=== PATIENT | male | born 1985 | race Caucasian/White ===

== ENCOUNTER 2024-05-13 18:01 | Emergency (ER) | payer OTHER, SELFPAY ==
[2024-05-13 18:02] VITALS: BP 149/114; PULSE 85; RESP 16; TEMP 36.4; O2SAT 98; BMI 24.0
--- NOTE | 2024-05-13 18:33 | EDS_ITS ---
HPI HPI - GI History of Present Illness Chief Complaint: Flank Pain Detail of Chief Complaint: 4-day history left flank pain. Atraumatic. Informant: patient and family Abdominal Pain/Flank Pain Onset: Days Context: Gradual Onset Quality: Aching Location: Left Flank Current Severity: Mild Maximum Severity: Moderate Worsened by: Movement Relieved by: Nothing Nausea/Vomiting/Emesis GI Symptom: Negative for Nausea or Vomiting Diarrhea/Melena/Hematochezia GI Symptom: Negative for Diarrhea, Melena or Hematochezia Associated Symptoms Associated Symptoms: Negative for Dysuria, Frequency, Hematuria or Urgency Narrative Narrative: 39-year-old male with onset of left flank pain about 4 to 5 days ago. Got worse after he sneezed a couple days ago. He has never had a kidney stone there is family history. He denies any fever or dysuria. He is worse with movement. Denies any fall injury or trauma. He has never had pain like this before. Prior similar symptoms: No Recent Illness/Hospitalization: No PFSH PFSH Medical History Kidney stones no medical history Home Medications ?Medication ?Instructions ?Recorded ?Last Taken ?Type hydrocodone-acetaminophen 5-325mg 1 - 2 tab PO Q4H PRN PRN Pain ##20 01/08/14 Unknown Rx 5mg-325mg naproxen 500 mg tablet 500 mg PO BID #20 tabs 01/08/14 Unknown Rx Allergy/AdvReac Type Severity Reaction Status Date / Time No Known Allergies Allergy Verified 05/13/24 18:02 Family History Other Kidney stone Surgical History no surgical history Social History Smoking Status: Current every day smoker tobacco type: e-cigarettes ROS ROS ED ROS Narrative Left flank pain. No recent illness. Constitutional Constitutional ED: Denies chills or fever(s) ENT ENT ED: Denies ear pain Cardiovascular Cardiovascular: Denies chest pain Respiratory/Chest Respiratory/Chest: Denies cough or dyspnea Gastrointestinal Gastrointestinal: Denies abdominal pain Genitourinary Genitourinary ED: Denies dysuria or hematuria Musculoskeletal Musculoskeletal: Reports back pain; Denies arthralgias Integumentary Denies abscess or Abrasions Neurologic Neurologic: Denies headache(s) Psychiatric Psychiatric: Denies anxiety Endocrine Endocrinology: Denies polydipsia Hematologic/Lymphatic Hematologic/Lymphatic: Denies easy bleeding Allergic/Immunologic Allergic/Immunologic ED: Denies mouth swelling, tongue swelling or urticaria EXAM Physical Exam Narrative Exam Narrative: 39-year-old male no acute distress vital signs stable afebrile. HEENT exam unremarkable. Lungs clear. Heart regular rhythm. No murmur. Abdomen soft nontender. No peritoneal signs. Back nontender. No ecchymosis or bruising. No rashes. No CVA tenderness. Moving all 4 extremities. He is awake and alert. No focal motor deficits. Const Vital Signs: 05/13/24 18:02 05/13/24 20:01 Temperature 97.6 F L Temperature Source Temporal Pulse Rate 85 69 Respiratory Rate 16 16 Blood Pressure 149/114 H 139/69 H Blood Pressure Mean 125 92 Pulse Ox 98 99 Oxygen Delivery Method Room Air Room Air Positive well nourished and well developed; Negative for obese, cachectic, contractures or unkempt General Appearance ED: well developed and NAD; Negative for unkempt, cachectic, contractures or pallor Nutritional Appearance: Negative for cachectic or obese HEENT Reports moist mucous membranes normocephalic and atraumatic; Negative for trauma or tenderness Eyes PERRL and EOMs intact bilaterally General Eye ED: Negative for pale conjunctiva, scleral icterus or other Neck no lymphadenopathy, supple and no JVD General: Negative for tenderness Carotids: Negative for other Lymph Lymphatic: Negative for other Resp normal respiratory effort and clear to auscultation bilaterally Effort and Inspection: Negative for respiratory distress Auscultation: Negative for rales, rhonchi, wheezes or diminished lung sounds Cardio regular rate, regular rhythm, S1 normal heart sound, S2 normal heart sound and no murmurs Rate: Negative for bradycardia or tachycardic Rhythm: Negative for abnormal rhythm GI non-tender, non-distended and no masses Inspection: Negative for abdominal distention Auscultation: normoactive bowel sounds Palpation: soft; Negative for tender, guarding or rebound tenderness present Back/Spine no CVA tenderness General Back: Negative for CVA tenderness Cervical Spine: Negative for cervical spine tenderness Thoracic Spine / Upper Back: Negative for thoracic spinal tenderness Lumbar Spine / Lower Back: Negative for lumbar spinal tenderness Extremity full ROM General Extremety ED: Negative for edema or tenderness General Extremity: Negative for edema Neuro CN's II-XII intact bilaterally and moves all extremities Sensorium / Orientation: alert; Negative for oriented to person, oriented to place, oriented to time or orientation impaired Motor Exam: strength 5/5 throughout; Negative for general weakness or strength abnormal Psych mental status grossly normal and thought process normal Appearance: Negative for unkempt Attitude: No agitated Mood & Affect: Negative for depressed, anxious or tearful Skin no wounds General Skin Exam: Negative for jaundice or pallor Lesions: no lesions Rashes: no rashes Trauma: Negative for abrasion Nails: Negative for discolored MDM MDM MDM Narrative Medical decision making narrative: 39-year-old male left flank pain. Family history of kidney stones he is never abdomen. The pain is not reproducible. CAT scan labs pending. He currently did not want or need anything for pain. Differential would include kidney stone versus UTI versus musculoskeletal pain versus other etiologies. Repeat exam patient is doing well at 8:30 PM. I went over all the test results and CAT scan with both he and his family. Basilar is all unremarkable. I suspect this is musculoskeletal pain. Repeat exam he has very minimal tenderness to his left lower lateral rib. There is no ecchymosis or bruising. No rash. His abdomen is completely nontender. I suspect this is musculoskeletal pain. Motrin and Tylenol. Discharged home. Outpatient follow- up as needed. History & Record Review Discussion w/independent historian: Patient and Family Lab Data Attestation: I reviewed the patient's lab results. Lab results narrative: CBC unremarkable. White count of 6. H&H 15 and 45. Platelets 305. Electrolytes show gap 11. Normal BUN and creatinine. Glucose 103. UA normal. No white or red cells. No nitrites. No bacteria. Labs: Laboratory Results - last 24 hr 05/13/24 05/13/24 18:13 18:18 WBC 6.4 RBC 4.71 Hgb 15.5 Hct 45.1 MCV 95.8 H MCH 32.9 H MCHC 34.4 RDW Std Deviation 44.4 H RDW Coeff of Shania 12.3 Plt Count 305 MPV 9.1 Immature Gran % (Auto) 0.200 Neut % (Auto) 48.5 Lymph % (Auto) 30.3 [place] % (Auto) 17.2 H Eos % (Auto) 1.9 Baso % (Auto) 1.9 H Absolute Neuts (auto) 3.1 Absolute Lymphs (auto) 1.95 Nucleated RBC % 0 Sodium 139 Potassium 3.7 Chloride 102 Carbon Dioxide 26.0 Anion Gap 11 BUN 7 Creatinine 0.80 Estim Creat Clear Calc 129.27 Est GFR (MDRD) Af Amer 138 Est GFR (MDRD) Non-Af 114 BUN/Creatinine Ratio 8.7 L Glucose 103 Calcium 9.7 Urine Color Yellow Urine Clarity Clear Urine pH 6.0 Ur Specific [place] 1.020 Urine Protein 30 H Urine Glucose (UA) Normal Urine Ketones Negative Urine Occult Blood Negative Urine Nitrite Negative Urine Bilirubin Negative Urine Urobilinogen 1 H Ur Leukocyte Esterase Negative Urine RBC 0 SEEN Urine WBC 0 SEEN Ur Squamous Epith Cells 0 SEEN Urine Bacteria 0 SEEN Urine Mucus 0 SEEN Radiography Diagnostic Testing: Clinical Impression(s) from Imaging Studies Abdomen/Pelvis CT 05/13/24 19:06 IMPRESSION: 1. No masses bowel obstruction abscess free fluid or free air. 2. No renal calcifications or evidence of obstructive uropathy. 3. No evidence of cholelithiasis or ductal dilatation. Electronically Signed: Han Branham MD at 19:40 EDT , Discharge Plan Triage Chief Complaint: Flank Pain ED Provider: Travis Torres Dx/Rx/DC Orders Clinical Impression: Acute left flank pain Instructions: ED Flank Pain, Uncertain Cause Prescriptions: No Action hydrocodone-acetaminophen 1 TABLET tablet 1 - 2 tab PO Q4H PRN PRN (Reason: Pain) Qty: 20 0RF naproxen 500 MG tablet 500 mg PO BID Qty: 20 0RF Primary Care Provider: Care Physician,No Primary Referrals: Diogenes Olvera MD [Med Staff - Biogeographer] - 1 Week if not improving Care Physician,No Primary [Primary Care Provider] - Activity Restrictions/Additional Instructions: CAT scan, labs and urinalysis all unremarkable. No obvious kidney stone. Suspected musculoskeletal pain. Motrin and Tylenol for pain. Follow-up with not improving. Print Language: Tamazight Disposition Disposition: Home, Self Care
[2024-05-13 18:46] LABS: Bacteria 0 SEEN /hpf (None Seen); Mucous, Urine 0 SEEN /hpf (<or=2+); Red Blood Cells-Urine 0 SEEN /hpf (0-5); Squamous Epithelial Cells - UA 0 SEEN /hpf (0-5); White Blood Cells 0 SEEN /hpf (0-5)
[2024-05-13 18:59] LABS: Absolute Lymphocyte Count 1.95 X10^3/uL (0.83-4.51); Absolute Neutrophil Count 3.1 X10^3/uL (2.0-7.7); Basophil# 0.12 X10^3/uL; Basophil% 1.9 % (0-1); Eosinophil# 0.12 X10^3/uL; Eosinophils% 1.9 % (0-5); Hematocrit 45.1 % (40-54); Hemoglobin 15.5 g/dL (13.0-16.5); Lymphocyte # 1.95 X10^3/ul (0.83-4.51); Lymphocyte % 30.3 % (19-41); Mean Corp Hgb Conc 34.4 g/dL (32-36); Mean Corpuscular Hgb 32.9 pg (27.0-32.0); Mean Corpuscular Volume 95.8 fL (80-94); Mean Platelet Vol. 9.1 fl (6.2-12.0); Monocyte# 1.11 X10^3/uL; Monocyte% 17.2 % (0-10); NRBC Flagged by Analyzer 0 % (0-5); Neutrophil # 3.13 X10^3/uL (2.7-7.7); Neutrophil % 48.5 % (47-70); Platelet Count 305 K/mm3 (150-450); RBC Distribution Width CV 12.3 % (11.6-14.6); RBC Distribution Width SD 44.4 fl (35.1-43.9); Red Blood Count 4.71 M/mm3 (4.6-6.2); White Blood Count 6.4 K/mm3 (4.4-11.0)
--- NOTE | 2024-05-13 19:06 | CT_ITS ---
INDICATION: Pain EXAMINATION: CT ABDOMEN AND PELVIS WITHOUT CONTRAST - CT Abdomen And Pelvis W/O Contrast Injection TECHNIQUE: Helically acquired images were obtained of the abdomen and pelvis without oral or IV contrast. A radiation dose optimization technique was used for this scan. IV Contrast dosage and agent: None. Oral contrast: None. RADIATION DOSAGE (If Supplied By Facility): CTDIvol = ( 6.77 ) mGy, DLP = ( 367.25 ) mGycm COMPARISON: No pertinent previous examinations for comparison. FINDINGS: LOWER CHEST: 1. Lung bases are clear. 2. No cardiomegaly or pericardial effusion. 3. No significant coronary vascular calcifications. LIVER: The liver has normal configuration and density given the limitation of noncontrast exam.. No focal mass. GALLBLADDER AND BILIARY TREE: No calcified gallstones. No gallbladder distension or wall edema. No intra- or extrahepatic biliary ductal dilation. PANCREAS: No focal cystic or solid mass. SPLEEN: Normal size without focal cystic or solid mass. ADRENAL GLANDS: No nodules. KIDNEYS AND URETERS: Normal renal size and position. No hydronephrosis. PERITONEUM: No ascites or free air. No other fluid collection. BOWEL: No evidence of acute appendicitis. No stomach or bowel distension. No focal inflammatory change. Incidental note of colonic interposition with the liver. LYMPH NODES: No enlarged mesenteric or retroperitoneal lymph nodes. VESSELS: Aorta is non-dilated. URINARY BLADDER: Unremarkable. REPRODUCTIVE ORGANS: No pelvic masses. ABDOMINAL WALL: No discrete abdominal or pelvic wall hernia. BONES: No evidence of fracture destructive bony process. No canal stenosis. Mild degenerative changes at the L4-5 and L5-S1 level. CT/Abdomen/Pelvis without Cont IMPRESSION: 1. No masses bowel obstruction abscess free fluid or free air. 2. No renal calcifications or evidence of obstructive uropathy. 3. No evidence of cholelithiasis or ductal dilatation. Electronically Signed: Han Branham MD at 19:40 EDT ,
[2024-05-13 19:08] LABS: Color, Urine Yellow (Yellow); Glucose, Dipstick Normal (Normal); Ketone-Dipstick Negative (Negative); Leukocyte Esterase-Dipstick Negative /ul (Negative); Nitrite-Dipstick Negative (Negative); Occult Blood-Urine Negative /ul (Negative); Protein-Dipstick 30 mg/dl (Negative); Urine Bilirubin Dipstick Negative (Negative); Urine Clarity Clear (Clear); Urine Urobilinogen 1 mg/dl (Normal)
[2024-05-13 19:15] LABS: Anion Gap 11 (5-15); BUN 7 mg/dL (7-18); BUN/Creat Ratio 8.7 RATIO (10-20); Calcium,Total 9.7 mg/dL (8.5-10.1); Chloride 102 mmol/L (98-107); EST Glomerular Filtration Rate 114 mL/min (>60); Est Glom Filt Rate - Afr Amer 138 mL/min (>60); Estimated Creatinine Clearance 129.27 ml/min; Glucose 103 mg/dL (74-106); Potassium 3.7 mmol/L (3.5-5.1); Sodium Level 139 mmol/L (136-145)
[2024-05-13 20:01] VITALS: BP 139/69; PULSE 69; RESP 16; O2SAT 99
[2024-05-13 20:55] VITALS: BP 124/65; PULSE 68; RESP 16; TEMP 36.6; O2SAT 99
== END 2024-05-13 20:56 | disposition home or self-care (01) ==
PROVIDERS: Emergency Provider Emergency Medicine; Visit Provider Emergency Medicine
DX: R10.32 Left lower quadrant pain (principal); X58.XXXA Exposure to other specified factors, initial encounter; F17.290 Nicotine dependence, other tobacco product, uncomplicated
CPT/HCPCS: 74176; 80048; 81001; 85025; 99283; A4216

== ENCOUNTER 2024-08-28 11:59 | Inpatient (IN) | payer OTHER, SELFPAY ==
[2024-08-28] VITALS (8 sets, daily range): BP systolic 137–169; BP diastolic 102–126; PULSE 68–82; RESP 16–19; TEMP 36.6–37.3; O2SAT 96–100; BMI 24.4; BMI 21.4
--- NOTE | 2024-08-28 12:47 | EX.ED.SAOD ---
HPI History of Present Illness Chief Complaint: Substance Abuse Informant: patient, spouse/S.O. and family Narrative Narrative: 39-year-old male presenting to the emergency room requesting detox from alcohol. Patient drinks approximately a half of 1/5 of bourbon daily. He states that he typically has to have a drink to keep withdrawal symptoms at bay. He notes anxiety shaking tachycardia and nausea. Last drink was at approximately 0900 hrs. today 30 minutes after waking. He denies any pending legal issues. He states that he has been considering getting help but decided over the weekend that it was time. He states that he got laid off in the past week. PFS PFS Medical History Alcohol abuse Smoker Home Medications ?Medication ?Instructions ?Recorded ?Last Taken ?Type NK 08/28/24 Unknown History Allergy/AdvReac Type Severity Reaction Status Date / Time No Known Allergies Allergy Verified 08/28/24 12:01 Family History Other Kidney stone Social History Smoking Status: Current every day smoker tobacco type: e-cigarettes ROS ROS ED Constitutional Constitutional ED: Denies chills or weight loss Eyes Eyes: Denies change in vision or diplopia ENT ENT ED: Denies ear pain, rhinorrhea or sore throat Cardiovascular Cardiovascular: Denies chest pain, orthopnea, palpitations or racing heartbeat Respiratory/Chest Respiratory/Chest: Denies cough, dyspnea or orthopnea Gastrointestinal Gastrointestinal: Reports nausea; Denies abdominal pain, diarrhea or vomiting Genitourinary Genitourinary ED: Denies dysuria, hematuria or urinary frequency Musculoskeletal Musculoskeletal: Denies arthralgias or myalgias Integumentary Denies abscess or rash Neurologic Neurologic: Reports other Details: Tremor ; Denies headache(s) or weakness Psychiatric Psychiatric: Reports anxiety and depression; Denies suicidal ideation or suicidal thoughts Endocrine Endocrinology: Denies polydipsia, polyphagia or polyuria Allergic/Immunologic Allergic/Immunologic ED: Denies mouth swelling, tongue swelling or urticaria EXAM Physical Exam Const Vital Signs: 08/28/24 12:00 Temperature 98.4 F Temperature Source Oral Pulse Rate 78 Respiratory Rate 16 Blood Pressure 169/126 H Blood Pressure Mean 140 Pulse Ox 96 Oxygen Delivery Method Room Air Positive well nourished and well developed General Appearance ED: well developed HEENT Reports normocephalic, head/scalp atraumatic and moist mucous membranes Eyes PERRL and EOMs intact bilaterally Neck no lymphadenopathy, supple and no JVD Resp normal respiratory effort and clear to auscultation bilaterally Cardio regular rate, regular rhythm and no murmurs GI normal to inspection, nondistended, normoactive bowel sounds and non-tender Palpation: soft Back/Spine no CVA tenderness and normal ROM Extremity normal to inspection General Extremety ED: Negative for edema General Extremity: Negative for edema Neuro oriented x3 and CN's II-XII intact bilaterally Sensorium / Orientation: alert Motor Exam: strength 5/5 throughout Psych mental status grossly normal Mood & Affect: Negative for depressed or tearful Skin no rashes or lesions noted and no wounds MDM MDM MDM Narrative Medical decision making narrative: Differential diagnosis includes but not limited to alcohol abuse alcohol intoxication alcohol withdrawal electrolyte abnormality liver dysfunction anemia/bone marrow suppression dehydration White count 4.3 with a plate count of 84 suggestive of bone marrow suppression from alcohol. Hemoglobin 14.8. INR 1 transaminases are slightly elevated 245 and 299 total bilirubin is 1.1 with a direct bilirubin 0.45 alcohol level 293. Urine toxicology is negative. A magnesium was added this returned at 1.9. Plan is admission to the hospital for ramp program History & Record Review Discussion w/independent historian: Patient and Family Lab Data Attestation: I reviewed the patient's lab results. Labs: Laboratory Results - last 24 hr 08/28/24 08/28/24 12:59 13:00 WBC 4.3 L RBC 4.58 L Hgb 14.8 Hct 42.7 MCV 93.2 MCH 32.3 H MCHC 34.7 RDW Std Deviation 45.1 H RDW Coeff of Shania 13.1 Plt Count 84 L MPV 8.4 Immature Gran % (Auto) 0.200 Neut % (Auto) 70.5 H Lymph % (Auto) 10.9 L [place] % (Auto) 16.5 H Eos % (Auto) 0.5 Baso % (Auto) 1.4 H Absolute Neuts (auto) 3.0 Absolute Lymphs (auto) 0.47 L Nucleated RBC % 0 Differential Comment COMMENT Platelet Estimate MOD DEC PT 13.3 INR 1.0 Sodium 138 Potassium 3.2 L Chloride 98 Carbon Dioxide 26.0 Anion Gap 15 BUN 6 L Creatinine 0.64 L Estim Creat Clear Calc 161.59 Est GFR (MDRD) Af Amer 181 Est GFR (MDRD) Non-Af 149 BUN/Creatinine Ratio 9.4 L Glucose 98 Calcium 9.8 Magnesium 1.9 Total Bilirubin 1.10 H Direct Bilirubin 0.45 H AST 245 H ALT 299 H Alkaline Phosphatase 96 Total Protein 8.0 Albumin 4.2 Globulin 3.8 Urine Opiates Screen NEGATIVE Urine Methadone Screen NEGATIVE Ur Barbiturates Screen NEGATIVE Ur Phencyclidine Scrn NEGATIVE Ur Amphetamines Screen NEGATIVE MDMA (Ecstasy) Screen NEGATIVE U Benzodiazepines Scrn NEGATIVE Urine Cocaine Screen NEGATIVE U Cannabinoids Screen NEGATIVE Ur Drug Screen Comment Ethyl Alcohol 293.0 Management Discussion w/another healthcare provider: Hospitalist (Dr Crandall) Discharge Plan Dx/Rx/DC Orders Clinical Impression: Alcohol abuse, Elevated transaminase level, Thrombocytopenia, Acute hypokalemia, Alcohol intoxication Disposition Disposition: Acute Care Hospital [facility] Discharge Date/Time: 08/28/24 14:18
[2024-08-28 13:13] LABS: Absolute Lymphocyte Count 0.47 X10^3/uL (0.83-4.51); Basophil# 0.06 X10^3/uL; Basophil% 1.4 % (0-1); Eosinophil# 0.02 X10^3/uL; Eosinophils% 0.5 % (0-5); Hematocrit 42.7 % (40-54); Hemoglobin 14.8 g/dL (13.0-16.5); Lymphocyte # 0.47 X10^3/ul (0.83-4.51); Lymphocyte % 10.9 % (19-41); Mean Corp Hgb Conc 34.7 g/dL (32-36); Mean Corpuscular Hgb 32.3 pg (27.0-32.0); Mean Corpuscular Volume 93.2 fL (80-94); Mean Platelet Vol. 8.4 fl (6.2-12.0); Monocyte# 0.71 X10^3/uL; Monocyte% 16.5 % (0-10); NRBC Flagged by Analyzer 0 % (0-5); Neutrophil # 3.03 X10^3/uL (2.7-7.7); Neutrophil % 70.5 % (47-70); POSITIVE COUNT YES; POSITIVE DIFFERENTIAL YES; Platelet Count 84 K/mm3 (150-450); RBC Distribution Width CV 13.1 % (11.6-14.6); RBC Distribution Width SD 45.1 fl (35.1-43.9); Red Blood Count 4.58 M/mm3 (4.6-6.2); White Blood Count 4.3 K/mm3 (4.4-11.0)
[2024-08-28 13:18] LABS: Differential Indicated SCAN CRITERIA MET
[2024-08-28 13:22] LABS: Amphetamine Urine VISTA NEGATIVE (<1000 ng/mL); Barbiturate Urine VISTA NEGATIVE (< 200 ng/mL); Benzodiazepine Urine VISTA NEGATIVE (< 200 ng/mL); Cocaine Urine VISTA NEGATIVE (< 300 ng/mL); Ecstacy Urine VISTA NEGATIVE (< 500 ng/mL); Methadone Urine VISTA NEGATIVE (< 300 ng/mL); PCP Urine VISTA NEGATIVE (< 25 ng/mL); THC Urine VISTA NEGATIVE (< 50 ng/mL); Vista UDS pH Range 5
[2024-08-28 13:28] LABS: AST(SGOT) 245 U/L (15-37); Alanine Aminotransfer ALT/SGPT 299 U/L (16-61); Albumin, Serum 4.2 g/dL (3.2-5.0); Alkaline Phosphatase 96 U/L (45-117); Anion Gap 15 (5-15); BUN 6 mg/dL (7-18); BUN/Creat Ratio 9.4 RATIO (10-20); Bilirubin, Direct 0.45 mg/dL (0.00-0.30); Calcium,Total 9.8 mg/dL (8.5-10.1); Chloride 98 mmol/L (98-107); Creatinine, Serum 0.64 mg/dL (0.70-1.30); EST Glomerular Filtration Rate 149 mL/min (>60); Est Glom Filt Rate - Afr Amer 181 mL/min (>60); Estimated Creatinine Clearance 161.59 ml/min; Globulin 3.8 g/dL (2.2-4.2); Glucose 98 mg/dL (74-106); Potassium 3.2 mmol/L (3.5-5.1); Sodium Level 138 mmol/L (136-145)
[2024-08-28 13:34] LABS: Prothrombin Time (Protime)PT. 13.3 SECONDS (11.7-14.9)
--- NOTE | 2024-08-28 13:40 | HP.PCM.HOS_ITS ---
HPI - General General Date of Admission: 08/28/24 Date of Service: 08/28/24 Chief Complaint: ETOH detox HPI Narrative CHLOE AMANDA, is a 39 M with history of tobacco use who presented to [facility] ED 10/29/2023 for alcohol detox. He drinks about half of 1/5 of bourbon every 1 to 2 days per patient but typically has to drink to keep withdrawal symptoms at bay and when he does not drink he gets anxiety, shaking, tachycardia, nausea. Last drink at 9 AM about 30 minutes after waking up. He got laid off last week so has been drinking more this week and felt that it was time to get help. In the ED patient with potassium of 3.2, elevated transaminases and thrombocytopenia but was stable for admission and alcohol detox. Hospitalist contacted for admission patient evaluated at bedside with family present (patient gave permission to speak in front of family.) he reports history as above and that he has been drinking for many years, presently not having any withdrawal symptoms but when he does not drink he notes the shaking and anxiety and nausea as above. Patient denies any other substance or drug use aside from vaping which she does daily. Denies any abdominal pain, eats roughly 2 meals a day and does make sure to drink water and keep himself hydrated. [facility]LY [facility], [facility] Medical History Kidney stones Home Medications ?Medication ?Instructions ?Recorded ?Last Taken ?Type hydrocodone-acetaminophen 5-325mg 1 - 2 tab PO Q4H PRN PRN Pain ##20 01/08/14 Unknown Rx 5mg-325mg naproxen 500 mg tablet 500 mg PO BID #20 tabs 01/08/14 Unknown Rx Allergy/AdvReac Type Severity Reaction Status Date / Time No Known Allergies Allergy Verified 08/28/24 12:01 Family History Other Kidney stone Social History Smoking Status: Current every day smoker tobacco type: e-cigarettes ROS ROS Narrative General: Denies fever/chills HENT: Denies headache, denies stuffy nose, denies sore throat EYES: Denies changes in vision Resp: Denies cough, denies shortness of breath Cardiac: Denies chest pain GI: Denies abdominal pain, denies changes in bowel, denies nausea/vomiting : Denies changes in urination Extremity: Denies swelling MSK: Denies weakness Neuro: Denies any numbness/tingling Heme: Denies any bleeding or bruising Skin: Denies rashes Psychiatric: No complaints voiced Vital Signs Vital Signs Vital Signs: 08/28/24 12:00 Temperature 98.4 F Temperature Source Oral Pulse Rate 78 Respiratory Rate 16 Blood Pressure 169/126 H Blood Pressure Mean 140 Pulse Ox 96 Oxygen Delivery Method Room Air Weight Weight: 77.337 kg Body Mass Index (BMI) 24.4 Physical Exam Narrative General: Alert, oriented, no apparent distress HEENT: Atraumatic, normocephalic Eyes: Anicteric, normal conjunctiva, extraocular movements grossly intact Neck: Supple Respiratory: Clear to auscultation bilaterally, normal respiratory effort Cardiovascular: Regular rate and rhythm GI: Soft, nontender, nondistended Extremities: No edema Musculoskeletal: Moving all extremities Neuro: No overt focal neurological deficits Skin: No rashes appreciated Psych: Cooperative Results Lab / Micro Data 08/28/24 12:59 08/28/24 12:59 Labs: Laboratory Results - last 24 hr 08/28/24 12:59: WBC 4.3 L, RBC 4.58 L, Hgb 14.8, Hct 42.7, MCV 93.2, MCH 32.3 H, MCHC 34.7, RDW Std Deviation 45.1 H, RDW Coeff of Shania 13.1, Plt Count 84 L, MPV 8.4, Immature Gran % (Auto) 0.200, Neut % (Auto) 70.5 H, Lymph % (Auto) 10.9 L, [place] % (Auto) 16.5 H, Eos % (Auto) 0.5, Baso % (Auto) 1.4 H, Absolute Neuts (auto) 3.0, Absolute Lymphs (auto) 0.47 L, Nucleated RBC % 0, Sodium 138, P otassium 3.2 L, Chloride 98, Carbon Dioxide 26.0, Anion Gap 15, BUN 6 L, C reatinine 0.64 L, Estim Creat Clear Calc 161.59, Est GFR (MDRD) Af Amer 181, Est GFR (MDRD) Non-Af 149, BUN/Creatinine Ratio 9.4 L, Glucose 98, Calcium 9.8, T otal Bilirubin 1.10 H, Direct Bilirubin 0.45 H, AST 245 H, ALT 299 H, Alkaline Phosphatase 96, Total Protein 8.0, Albumin 4.2, Globulin 3.8, Urine Opiates Screen NEGATIVE, Urine Methadone Screen NEGATIVE, Ur Barbiturates Screen NEGATIVE, Ur Phencyclidine Scrn NEGATIVE, Ur Amphetamines Screen NEGATIVE, MDMA (Ecstasy) Screen NEGATIVE, U Benzodiazepines Scrn NEGATIVE, Urine Cocaine Screen NEGATIVE, U Cannabinoids Screen NEGATIVE, Ur Drug Screen Comment , Ethyl Alcohol 293.0 08/28/24 13:00: PT 13.3, INR 1.0 Assessment & Plan Assessment/Plan (1) Alcohol withdrawal: PLAN: Plan #Alcohol use disorder - We will begin CIWA every 4 for 24 hours, then every 6 for 24 hours, then every 12 until discharge -Will begin phenobarbital taper -Gabapentin 300 mg every 8 as needed -Will start Bentyl and hydroxyzine as needed as well as loperamide as needed -Trazodone 100 mg p.o. nightly as needed sleep -Begin thiamine and folic acid supplementation -Zofran as needed for nausea -Case management consult to assist with discharge planning -EtOH 293 -UDS negative # Elevated transaminases -Suspect secondary to patient's heavy alcohol use -Repeat CMP in the a.m., can consider further workup or imaging pending worsening or improvement -Presently is asymptomatic -Ultimately will benefit from outpatient follow-up #Tobacco use -Advise cessation -Nicotine patch ordered #Hypokalemia -Replace -Repeat in the AM # Leukopenia/thrombocytopenia -Suspect secondary to patient's chronic alcohol use, will need to follow-up on outpatient basis #DVT ppx: Low risk, ambulatory Joann Crandall MD Charges/Coding Visit Charges Inpatient E&M: 13956 Init Hosp L2
[2024-08-28 13:44] LABS: Platelet Estimate MOD DEC (ADEQ)
[2024-08-28 13:56] LABS: Magnesium 1.9 mg/dL (1.6-2.6)
[2024-08-28] MEDS: Potassium Chloride Oral Tablet 20 MEQ 40 MEQ PO (14:06)
[2024-08-28] MEDS: Phenobarbital 32.4 MG Tablet 64.8 MG PO ×3 (15:12→22:49)
[2024-08-28] MEDS: hydrALAZINE 20 MG/ML Vial 10 MG IV (23:59)
[2024-08-28] MEDS: 0.9% Saline Lock 10 ML Syringe IV (23:59)
[2024-08-29] VITALS (7 sets, daily range): BP systolic 146–176; BP diastolic 101–112; PULSE 80–92; RESP 15–18; TEMP 36.8–36.9; O2SAT 98–100
[2024-08-29] MEDS: Phenobarbital 32.4 MG Tablet 64.8 MG PO ×6 (02:49→22:08)
[2024-08-29] MEDS: 0.9% Saline Lock 10 ML Syringe IV (03:21)
[2024-08-29] MEDS: hydrOXYzine PAM 25 MG Capsule 50 MG PO ×2 (03:21→18:36)
[2024-08-29] MEDS: hydrALAZINE 20 MG/ML Vial IV (03:21)
[2024-08-29 07:04] LABS: Absolute Neutrophil Count 3.9 X10^3/uL (2.0-7.7); Basophil# 0.08 X10^3/uL; Basophil% 1.5 % (0-1); Eosinophil# 0.03 X10^3/uL; Eosinophils% 0.6 % (0-5); Hematocrit 45.7 % (40-54); Hemoglobin 15.9 g/dL (13.0-16.5); Lymphocyte % 7.4 % (19-41); Mean Corp Hgb Conc 34.8 g/dL (32-36); Mean Corpuscular Hgb 32.8 pg (27.0-32.0); Mean Corpuscular Volume 94.2 fL (80-94); Mean Platelet Vol. 9.4 fl (6.2-12.0); Monocyte# 0.99 X10^3/uL; Monocyte% 18.2 % (0-10); NRBC Flagged by Analyzer 0 % (0-5); Neutrophil # 3.93 X10^3/uL (2.7-7.7); Neutrophil % 72.1 % (47-70); POSITIVE COUNT YES; POSITIVE DIFFERENTIAL YES; Platelet Count 86 K/mm3 (150-450); RBC Distribution Width CV 13.2 % (11.6-14.6); RBC Distribution Width SD 45.3 fl (35.1-43.9); Red Blood Count 4.85 M/mm3 (4.6-6.2); White Blood Count 5.4 K/mm3 (4.4-11.0)
[2024-08-29 08:00] LABS: ALB/GLOB Ratio 1.1 RATIO (0.9-2.4); AST(SGOT) 204 U/L (15-37); Alanine Aminotransfer ALT/SGPT 279 U/L (16-61); Alkaline Phosphatase 99 U/L (45-117); Anion Gap 13 (5-15); BUN 8 mg/dL (7-18); Calcium,Total 9.8 mg/dL (8.5-10.1); Chloride 95 mmol/L (98-107); Creatinine, Serum 0.54 mg/dL (0.70-1.30); EST Glomerular Filtration Rate 183 mL/min (>60); Est Glom Filt Rate - Afr Amer 221 mL/min (>60); Estimated Creatinine Clearance 177.78 ml/min; Globulin 3.7 g/dL (2.2-4.2); Glucose 77 mg/dL (74-106); Potassium 3.5 mmol/L (3.5-5.1); Protein, Total 7.7 g/dL (6.4-8.2); Sodium Level 134 mmol/L (136-145)
[2024-08-29] MEDS: Thiamine Hydrochloride 100 MG Tablet PO (08:31)
[2024-08-29] MEDS: Folic Acid 1 MG Tablet PO (08:31)
--- NOTE | 2024-08-29 09:52 | PCM.PN.HOSP ---
Reason for Visit Reason for Visit: Diagnoses Alcohol use, unspecified with withdrawal, unspecified (08/28/24) Objective Data Objective Data Vital Signs: Vital Signs Temp Pulse Resp BP Pulse Ox O2 Del Method 98.2 F 82 18 146/101 H 98 Room Air 08/29/24 08:24 08/29/24 08:24 08/29/24 08:24 08/29/24 08:24 08/29/24 08:24 08/29/24 08:24 Oxygen Delivery Method Room Air Weight: 149 lb 6.4 oz Body Mass Index (BMI) 21.4 Intake & Output: Intake and Output for Last 24 Hours 08/27/24 08/28/24 08/29/24 23:59 23:59 23:59 Intake Total 700 / 700 300 / 300 Balance 700 / 700 300 / 300 Lab / Micro Data 08/29/24 06:20 08/29/24 06:20 Labs: Laboratory Results - last 24 hr 08/28/24 12:59: WBC 4.3 L, RBC 4.58 L, Hgb 14.8, Hct 42.7, MCV 93.2, MCH 32.3 H, MCHC 34.7, RDW Std Deviation 45.1 H, RDW Coeff of Shania 13.1, Plt Count 84 L, MPV 8.4, Immature Gran % (Auto) 0.200, Neut % (Auto) 70.5 H, Lymph % (Auto) 10.9 L, [place] % (Auto) 16.5 H, Eos % (Auto) 0.5, Baso % (Auto) 1.4 H, Absolute Neuts (auto) 3.0, Absolute Lymphs (auto) 0.47 L, Nucleated RBC % 0, Differential Comment COMMENT, Platelet Estimate MOD DEC, Sodium 138, Potassium 3.2 L, Chloride 98, Carbon Dioxide 26.0, Anion Gap 15, BUN 6 L, Creatinine 0.64 L, Estim Creat Clear Calc 161.59, Est GFR (MDRD) Af Amer 181, Est GFR (MDRD) Non-Af 149, BUN/Creatinine Ratio 9.4 L, Glucose 98, Calcium 9.8, Magnesium 1.9, Total Bilirubin 1.10 H, Direct Bilirubin 0.45 H, AST 245 H, ALT 299 H, Alkaline Phosphatase 96, Total Protein 8.0, Albumin 4.2, Globulin 3.8, Urine Opiates Screen NEGATIVE, Urine Methadone Screen NEGATIVE, Ur Barbiturates Screen NEGATIVE, Ur Phencyclidine Scrn NEGATIVE, Ur Amphetamines Screen NEGATIVE, MDMA (Ecstasy) Screen NEGATIVE, U Benzodiazepines Scrn NEGATIVE, Urine Cocaine Screen NEGATIVE, U Cannabinoids Screen NEGATIVE, Ur Drug Screen Comment , Ethyl Alcohol 293.0 08/28/24 13:00: PT 13.3, INR 1.0 08/29/24 06:20: WBC 5.4, RBC 4.85, Hgb 15.9, Hct 45.7, MCV 94.2 H, MCH 32.8 H, MCHC 34.8, RDW Std Deviation 45.3 H, RDW Coeff of Shania 13.2, Plt Count 86 L, MPV 9.4, Immature Gran % (Auto) 0.200, Neut % (Auto) 72.1 H, Lymph % (Auto) 7.4 L, Phillips % (Auto) 18.2 H, Eos % (Auto) 0.6, Baso % (Auto) 1.5 H, Absolute Neuts (auto) 3.9, Absolute Lymphs (auto) 0.40 L, Nucleated RBC % 0, Sodium 134 L, Potassium 3.5, Chloride 95 L, Carbon Dioxide 26.0, Anion Gap 13, BUN 8, Creatinine 0.54 L, Estim Creat Clear Calc 177.78, Est GFR (MDRD) Af Amer 221, Est GFR (MDRD) Non-Af 183, BUN/Creatinine Ratio 15.0, Glucose 77, Calcium 9.8, Total Bilirubin 1.50 H, AST 204 H, ALT 279 H, Alkaline Phosphatase 99, Total Protein 7.7, Albumin 4.0, Globulin 3.7, Albumin/Globulin Ratio 1.1 Physical Exam Narrative Seen and examined. Patient is states he was drinking half a bottle of whiskey every day for last 2 and half years. Patient has tremors and anxiety. Denies abdominal pain. Denies symptoms of chronic alcoholic liver disease including hematemesis, melena, ascites or jaundice Physical exam General: Alert, Oriented x3, Cooperative HEENT: Atraumatic, PERRLA, EOMI, Normocephalic Oral: No Gingival or Mucosal Lesions/ Ulcerations Neck: Supple, No JVD, Negative Carotid Bruits Chest wall/Lungs: Air entry diminished in bilateral lung bases. No crepitation/rhonchi Cardiovascular: Regular rate, Regular Rhythm, Normal S1, Normal S2, No M/G/R Abdomen: Bowel Sounds Present, Soft, Non Tender, Non-Distended : No dysuria. No renal angle tenderness. No suprapubic tenderness. Extremities: No edema, Capillary Refill Less than 3 Seconds Skin: No rashes, No breakdown Musculoskeletal: No Tenderness to Palpation of Joints or Extremities. Mild tremors Neurological: Cranial nerves II-XII grossly intact, DTR 2+/4. No acute focal neurological deficit. Psych/Mental Status: Anxiety Assessment & Plan Assessment/Plan (1) Alcohol withdrawal: PLAN: Plan 39-year-old male admitted with acute alcohol withdrawal syndrome. 1. Acute alcohol withdrawal syndrome with history of chronic alcohol use, dependence and tolerance: Patient is being admitted to MedSurg floor. Patient on phenobarbital based order set along with other adjunctive medications gabapentin, Bentyl, Vistaril, clonidine, Klonopin as needed for alcohol withdrawal symptom control. Patient is on thiamine and folate acid. CIWA monitor. computer programming manager 180 consulted. Serum alcohol level was 293. U tox was negative 2. Acute on chronic alcoholic hepatitis: ALT AST elevated, gradually getting better. Total bilirubin went up from 1.1-1.5. Patient denies history of hematemesis, melena, jaundice or abdominal pain and no tenderness on exam 3. Tobacco use -Advise cessation -Nicotine patch ordered # 4. Hypokalemia Potassium was replaced and repeat 3.5. On a scheduled potassium replacement. Serum magnesium normal 1.9. Monitor the labs. Serum phosphorus ordered # Leukopenia/thrombocytopenia -Suspect secondary to patient's chronic alcohol use, 08/29: Repeat labs shows improvement in WBC 5.4 thousand. Platelet count is still very low 86,000. #DVT ppx: Low risk, ambulatory Laboratory Results 08/28/24 12:59: WBC 4.3 L, RBC 4.58 L, Hgb 14.8, Hct 42.7, MCV 93.2, MCH 32.3 H, MCHC 34.7, RDW Std Deviation 45.1 H, RDW Coeff of Shania 13.1, Plt Count 84 L, MPV 8.4, Immature Gran % (Auto) 0.200, Neut % (Auto) 70.5 H, Lymph % (Auto) 10.9 L, Phillips % (Auto) 16.5 H, Eos % (Auto) 0.5, Baso % (Auto) 1.4 H, Absolute Neuts (auto) 3.0, Absolute Lymphs (auto) 0.47 L, Nucleated RBC % 0, Differential Comment COMMENT, Platelet Estimate MOD DEC, Sodium 138, Potassium 3.2 L, Chloride 98, Carbon Dioxide 26.0, Anion Gap 15, BUN 6 L, Creatinine 0.64 L, Estim Creat Clear Calc 161.59, Est GFR (MDRD) Af Amer 181, Est GFR (MDRD) Non-Af 149, BUN/Creatinine Ratio 9.4 L, Glucose 98, Calcium 9.8, Magnesium 1.9, Total Bilirubin 1.10 H, Direct Bilirubin 0.45 H, AST 245 H, ALT 299 H, Alkaline Phosphatase 96, Total Protein 8.0, Albumin 4.2, Globulin 3.8, Urine Opiates Screen NEGATIVE, Urine Methadone Screen NEGATIVE, Ur Barbiturates Screen NEGATIVE, Ur Phencyclidine Scrn NEGATIVE, Ur Amphetamines Screen NEGATIVE, MDMA (Ecstasy) Screen NEGATIVE, U Benzodiazepines Scrn NEGATIVE, Urine Cocaine Screen NEGATIVE, U Cannabinoids Screen NEGATIVE, Ethyl Alcohol 293.0 08/28/24 13:00: PT 13.3, INR 1.0 08/29/24 06:20: WBC 5.4, RBC 4.85, Hgb 15.9, Hct 45.7, MCV 94.2 H, MCH 32.8 H, MCHC 34.8, RDW Std Deviation 45.3 H, RDW Coeff of Shania 13.2, Plt Count 86 L, MPV 9.4, Immature Gran % (Auto) 0.200, Neut % (Auto) 72.1 H, Lymph % (Auto) 7.4 L, Phillips % (Auto) 18.2 H, Eos % (Auto) 0.6, Baso % (Auto) 1.5 H, Absolute Neuts (auto) 3.9, Absolute Lymphs (auto) 0.40 L, Nucleated RBC % 0, Sodium 134 L, Potassium 3.5, Chloride 95 L, Carbon Dioxide 26.0, Anion Gap 13, BUN 8, Creatinine 0.54 L, Estim Creat Clear Calc 177.78, Est GFR (MDRD) Af Amer 221, Est GFR (MDRD) Non-Af 183, BUN/Creatinine Ratio 15.0, Glucose 77, Calcium 9.8, Total Bilirubin 1.50 H, AST 204 H, ALT 279 H, Alkaline Phosphatase 99, Total Protein 7.7, Albumin 4.0, Globulin 3.7, Albumin/Globulin Ratio 1.1 Charges/Coding Visit Charges Inpatient E&M: 60378 Subs Hosp L2
--- NOTE | 2024-08-29 11:36 | ADDICTION ---
Met with Pt to complete RAMP assessments and discuss treatment options. Pt reports that he has a supportive , has a therapist at [facility] and plans to talk to his friends about going to . Clinician discussed a higher level of care treatment options but he was not interested.
[2024-08-29] MEDS: Potassium Chloride Oral Tablet 20 MEQ 40 MEQ PO (13:33)
[2024-08-29 14:13] LABS: Anion Gap 8 (5-15); BUN 10 mg/dL (7-18); BUN/Creat Ratio 14.3 RATIO (10-20); Calcium,Total 10.4 mg/dL (8.5-10.1); Chloride 95 mmol/L (98-107); EST Glomerular Filtration Rate 134 mL/min (>60); Est Glom Filt Rate - Afr Amer 162 mL/min (>60); Estimated Creatinine Clearance 137.15 ml/min; Glucose 92 mg/dL (74-106); Phosphorus 2.8 mg/dL (2.5-4.9); Potassium 3.6 mmol/L (3.5-5.1); Sodium Level 132 mmol/L (136-145)
[2024-08-30 00:33] VITALS: BP 141/102; PULSE 82; RESP 16; TEMP 36.7; O2SAT 99
[2024-08-30] MEDS: Phenobarbital 32.4 MG Tablet 64.8 MG PO ×3 (02:56→11:03)
[2024-08-30 03:00] VITALS: BP 143/105; PULSE 75; RESP 16; TEMP 36.6; O2SAT 99
[2024-08-30 08:26] VITALS: BP 153/127; PULSE 95; RESP 12; TEMP 36.5; O2SAT 100
[2024-08-30] MEDS: Potassium Chloride Oral Tablet 20 MEQ 40 MEQ PO (08:30)
[2024-08-30] MEDS: Folic Acid 1 MG Tablet PO (08:30)
[2024-08-30] MEDS: Thiamine Hydrochloride 100 MG Tablet PO (08:30)
[2024-08-30 08:38] LABS: ALB/GLOB Ratio 1.1 RATIO (0.9-2.4); AST(SGOT) 173 U/L (15-37); Alanine Aminotransfer ALT/SGPT 249 U/L (16-61); Alkaline Phosphatase 89 U/L (45-117); Anion Gap 11 (5-15); BUN 10 mg/dL (7-18); BUN/Creat Ratio 17.4 RATIO (10-20); Calcium,Total 10.1 mg/dL (8.5-10.1); Chloride 96 mmol/L (98-107); Creatinine, Serum 0.57 mg/dL (0.70-1.30); EST Glomerular Filtration Rate 168 mL/min (>60); Est Glom Filt Rate - Afr Amer 204 mL/min (>60); Estimated Creatinine Clearance 168.51 ml/min; Globulin 3.8 g/dL (2.2-4.2); Glucose 89 mg/dL (74-106); Magnesium 1.9 mg/dL (1.6-2.6); Potassium 3.7 mmol/L (3.5-5.1); Protein, Total 7.8 g/dL (6.4-8.2); Sodium Level 133 mmol/L (136-145)
--- NOTE | 2024-08-30 12:20 | NURSING ---
Patient left Dr. Ej SIGALA aware. SL removed.
--- NOTE | 2024-08-30 13:03 | DS.PCM_ITS ---
Providers Date of Admission: 08/28/24 Date of Discharge: 08/30/24 Primary Care Physician: No Primary Care Phys Reason For Visit: ETOH DETOX Diagnosis Discharge Diagnosis (1) Alcohol withdrawal: Status: Acute Code(s): F10.939 - Alcohol use, unspecified with withdrawal, unspecified Plan 39-year-old male admitted with acute alcohol withdrawal syndrome. 1. Acute alcohol withdrawal syndrome with history of chronic alcohol use, dependence and tolerance: Patient is being admitted to MedSur floor. Patient on phenobarbital based order set along with other adjunctive medications gabapentin, Bentyl, Vistaril, clonidine, Klonopin as needed for alcohol withdrawal symptom control. Patient is on thiamine and folate acid. CIWA monitor. manager quality improvement 180 consulted. Serum alcohol level was 293. U tox was negative 08/30: Patient stated he wants to sign AMA. He knows the risk and complications of signing AMA including worsening of alcohol withdrawal symptoms. I talked to him to stay but he is declining. Patient signed AMA 2. Acute on chronic alcoholic hepatitis: ALT AST elevated, gradually getting better. Total bilirubin went up from 1.1-1.5. Patient denies history of hematemesis, melena, jaundice or abdominal pain and no tenderness on exam 08/30: Advised to follow-up with GI/liver clinic 3. Tobacco use -Advise cessation -Nicotine patch ordered # 4. Hypokalemia Potassium was replaced and repeat 3.5. On a scheduled potassium replacement. Serum magnesium normal 1.9. Monitor the labs. Serum phosphorus ordered # Leukopenia/thrombocytopenia -Suspect secondary to patient's chronic alcohol use, 08/29: Repeat labs shows improvement in WBC 5.4 thousand. Platelet count is still very low 86,000. #DVT ppx: Low risk, ambulatory Laboratory Results 08/28/24 12:59: WBC 4.3 L, RBC 4.58 L, Hgb 14.8, Hct 42.7, MCV 93.2, MCH 32.3 H, MCHC 34.7, RDW Std Deviation 45.1 H, RDW Coeff of Shania 13.1, Plt Count 84 L, MPV 8.4, Immature Gran % (Auto) 0.200, Neut % (Auto) 70.5 H, Lymph % (Auto) 10.9 L, [place] % (Auto) 16.5 H, Eos % (Auto) 0.5, Baso % (Auto) 1.4 H, Absolute Neuts (auto) 3.0, Absolute Lymphs (auto) 0.47 L, Nucleated RBC % 0, Differential Comment COMMENT, Platelet Estimate MOD DEC, Sodium 138, Potassium 3.2 L, Chloride 98, Carbon Dioxide 26.0, Anion Gap 15, BUN 6 L, Creatinine 0.64 L, Estim Creat Clear Calc 161.59, Est GFR (MDRD) Af Amer 181, Est GFR (MDRD) Non-Af 149, BUN/Creatinine Ratio 9.4 L, Glucose 98, Calcium 9.8, Magnesium 1.9, Total Bilirubin 1.10 H, Direct Bilirubin 0.45 H, AST 245 H, ALT 299 H, Alkaline Phosphatase 96, Total Protein 8.0, Albumin 4.2, Globulin 3.8, Urine Opiates Screen NEGATIVE, Urine Methadone Screen NEGATIVE, Ur Barbiturates Screen NEGATIVE, Ur Phencyclidine Scrn NEGATIVE, Ur Amphetamines Screen NEGATIVE, MDMA (Ecstasy) Screen NEGATIVE, U Benzodiazepines Scrn NEGATIVE, Urine Cocaine Screen NEGATIVE, U Cannabinoids Screen NEGATIVE, Ethyl Alcohol 293.0 08/28/24 13:00: PT 13.3, INR 1.0 08/29/24 06:20: WBC 5.4, RBC 4.85, Hgb 15.9, Hct 45.7, MCV 94.2 H, MCH 32.8 H, MCHC 34.8, RDW Std Deviation 45.3 H, RDW Coeff of Shania 13.2, Plt Count 86 L, MPV 9.4, Immature Gran % (Auto) 0.200, Neut % (Auto) 72.1 H, Lymph % (Auto) 7.4 L, M thanh % (Auto) 18.2 H, Eos % (Auto) 0.6, Baso % (Auto) 1.5 H, Absolute Neuts (auto) 3.9, Absolute Lymphs (auto) 0.40 L, Nucleated RBC % 0, Sodium 134 L, Potassium 3.5, Chloride 95 L, Carbon Dioxide 26.0, Anion Gap 13, BUN 8, C reatinine 0.54 L, Estim Creat Clear Calc 177.78, Est GFR (MDRD) Af Amer 221, Est GFR (MDRD) Non-Af 183, BUN/Creatinine Ratio 15.0, Glucose 77, Calcium 9.8, Total Bilirubin 1.50 H, AST 204 H, ALT 279 H, Alkaline Phosphatase 99, Total Protein 7.7, Albumin 4.0, Globulin 3.7, Albumin/Globulin Ratio 1.1 Medications at Discharge Home Medications NK 08/28/24 Physical Exam Narrative Seen and examined. Patient sitting wants to sign AMA. Patient still has mild unsteady gait and tremors. Patient is states he was drinking half a bottle of whiskey every day for last 2 and half years. Denies abdominal pain. Denies symptoms of chronic alcoholic liver disease including hematemesis, melena, ascites or jaundice Physical exam General: Alert, Oriented x3, Cooperative HEENT: Atraumatic, PERRLA, EOMI, Normocephalic Oral: No Gingival or Mucosal Lesions/ Ulcerations Neck: Supple, No JVD, Negative Carotid Bruits Chest wall/Lungs: Air entry diminished in bilateral lung bases. No crepitation/rhonchi Cardiovascular: Regular rate, Regular Rhythm, Normal S1, Normal S2, No M/G/R Abdomen: Bowel Sounds Present, Soft, Non Tender, Non-Distended : No dysuria. No renal angle tenderness. No suprapubic tenderness. Extremities: No edema, Capillary Refill Less than 3 Seconds Skin: No rashes, No breakdown Musculoskeletal: No Tenderness to Palpation of Joints or Extremities. Mild tremors Neurological: Cranial nerves II-XII grossly intact, DTR 2+/4. No acute focal neurological deficit. Psych/Mental Status: Anxiety Weight / BMI Weight Weight: 149 lb 7.574 oz Body Mass Index (BMI) 21.4 ABG / Lab / Microbiology Data 08/29/24 06:20 08/30/24 05:09 Laboratory: Laboratory Results - last 24 hr 08/29/24 13:32: Sodium 132 L, Potassium 3.6, Chloride 95 L, Carbon Dioxide 29.0, Anion Gap 8, BUN 10, Creatinine 0.70, Estim Creat Clear Calc 137.15, Est GFR (MDRD) Af Amer 162, Est GFR (MDRD) Non-Af 134, BUN/Creatinine Ratio 14.3, Glucose 92, Calcium 10.4 H, Phosphorus 2.8 08/30/24 05:09: Sodium 133 L, Potassium 3.7, Chloride 96 L, Carbon Dioxide 25.0, Anion Gap 11, BUN 10, Creatinine 0.57 L, Estim Creat Clear Calc 168.51, Est GFR (MDRD) Af Amer 204, Est GFR (MDRD) Non-Af 168, BUN/Creatinine Ratio 17.4, Glucose 89, Calcium 10.1, Magnesium 1.9, Total Bilirubin 1.80 H, AST 173 H, ALT 249 H, Alkaline Phosphatase 89, Total Protein 7.8, Albumin 4.0, Globulin 3.8, Albumin/Globulin Ratio 1.1 D/C Instructions DC O2, CPAP, BIPAP Needs Additional Home O2 Discharge instructions: No DC home with Oxygen: No Meaningful Use Info Meaningful Use Meaningful Use Diagnoses (Choose all that apply): None applicable Ischemic Stroke Statin Dosing Therapy Reference: STATIN DOSE THERAPY REFERENCE: * Patients > 75 years receive moderate or high dose statin therapy. * Patients 75 years or YOUNGER should receive HIGH intensity statin dose unless contraindicated. You will be required to document reason for non-treatment if statin daily dose does not meet guidelines. HIGH DOSE STATIN THERAPY DAILY Atorvastatin > than or = to 40 mg Rosuvastatin > than or = to 20 mg Amlodipine + Atorvastatin > than or = to 2.5/40 mg Ezetimibe + Simvastatin 10/80 mg Simvastatin 80mg Discharge Plan Admission Admit Date/Time: 08/28/24 13:40 Attending Provider: Jorge Luis Pagan Primary Care Provider: Care Physician,No Primary Consulting Providers: Joann Crandall Discharge Orders/Prescriptions Prescriptions: No Action NK Referrals / Follow Up: Care Physician,No Primary [Primary Care Provider] - Disposition Disposition (needs filled in before D/C Order can be placed): Home, Self Care Charges/Coding Visit Charges Inpatient E&M: 55215 Disch Hosp >30min
== END 2024-08-30 12:35 | disposition home or self-care (01) | DRG 897 ==
LOC: ED 12:52 → MS3 13:48
PROVIDERS: Admitting Provider Internal Medicine; Emergency Provider Emergency Medicine; Visit Provider Internal Medicine
DX: F10.239 Alcohol dependence with withdrawal, unspecified (principal); D69.6 Thrombocytopenia, unspecified; K70.10 Alcoholic hepatitis without ascites; E87.6 Hypokalemia; D72.819 Decreased white blood cell count, unspecified; F17.210 Nicotine dependence, cigarettes, uncomplicated; R74.01 Elevation of levels of liver transaminase levels; Y90.7 Blood alcohol level of 200-239 mg/100 ml
CPT/HCPCS: 36415; 80048; 80053; 80076; 80307; 82077; 83735; 84100; 85025; 85610; 97802; 99284; 99406; A4216

== ENCOUNTER 2024-08-31 11:38 | Emergency (ER) | payer OTHER, SELFPAY ==
[2024-08-31 11:38] VITALS: BP 153/97; PULSE 82; RESP 16; TEMP 36.1; O2SAT 96; BMI 23.3
--- NOTE | 2024-08-31 11:59 | EDS_ITS ---
<Statement entered by Freddy Barroso DO - 08/31/24 16:18> Patient was seen and examined with physician medical receptionist assistant Vannesa All components of the history and physical confirmed and agreed. History of present illness and physical exam: Patient is a 39-year-old male who presents to the emergency department wanting readmitted for alcohol detox. He states that he was initially mated on Wednesday and left AGAINST MEDICAL ADVICE on Wednesday. He states that he has been drinking about 1/5 of bourbon daily for about 2 years. He states that he has gone through withdrawal in the past but has not had any seizures. He states that he has not had a drink since Wednesday. He states that he left because he got anxious and now he regrets his decision therefore he came back for readmission. Patient otherwise feels at his baseline. Review of systems: Agree with above Physical exam: Agree with above MDM Patient is a 31-year-old male who presents to the Emergency Department for r eadmission for alcohol detox. Patient will have medical clearance here. Patient CBC reviewed and showed no evidence leukocytosis white blood count normal at 5.4, hemoglobin stable at 15.4, platelet count was noted be 148. Patient's sodium was noted to be 132, potassium normal 3.5, creatinine normal at 0.70. Patient AST and ALT were 211 284 which they were elevated in the past likely secondary to his alcohol use and he has no abdominal pain on exam. Patient drug screen was positive for barbiturates and cannabis. Patient's alcohol level less than 3. Social work did evaluate the patient and they gave him outpatient resources. The patient would prefer to go home at this point time and use the resources that he was given. Vannesa did discuss the case with hospitalist Dr. Crandall and feels that the patient does not require admission for alcohol withdrawal as he is currently asymptomatic. He is encouraged to not drink any more alcohol. He is encouraged return with worsening symptoms and concerns he is agreeable this plan as well as for member bedside all question concerns answered bedside he is discharged home in stable condition. Final impression: Alcohol abuse Medical screening exam Disposition: Patient will be discharged home in stable condition Supervising attending attestation: Freddy Barroso D.O. HPI History of Present Illness Chief Complaint: ETOH Intox Narrative Narrative: Patient presenting today requesting to be readmitted for alcohol detox. He was initially admitted on Wednesday and left AMA on Wednesday. He reports that he was drinking about a half 1/5 of bourbon daily for about 2 years. No history of withdrawal seizures. He has not drank since Wednesday. He reports that he left because he got anxious but now regrets his decision and would like to be readmitted. He denies any other substance use. He denies withdrawal symptoms at this time. PFSH PFS Medical History Alcohol abuse Smoker Home Medications ?Medication ?Instructions ?Recorded ?Last Taken ?Type NK 08/28/24 Unknown History Allergy/AdvReac Type Severity Reaction Status Date / Time No Known Allergies Allergy Verified 08/31/24 11:41 Family History Other Kidney stone Social History Smoking Status: Current every day smoker tobacco type: e-cigarettes ROS ROS ED Constitutional Constitutional ED: Denies chills or fever(s) Cardiovascular Cardiovascular: Denies chest pain Respiratory/Chest Respiratory/Chest: Denies dyspnea Gastrointestinal Gastrointestinal: Denies abdominal pain, nausea or vomiting Musculoskeletal Musculoskeletal: Denies arthralgias or myalgias Integumentary Denies rash Neurologic Neurologic: Denies weakness EXAM Physical Exam Const Vital Signs: 08/31/24 11:38 08/31/24 12:32 08/31/24 13:08 Temperature 97 F L 97.2 F L Temperature Source Temporal Oral Pulse Rate 82 82 86 Respiratory Rate 16 16 15 Blood Pressure 153/97 H 149/89 H 132/84 H Blood Pressure Mean 115 109 100 Blood Pressure Source Monitor
--- NOTE | 2024-08-31 11:59 | EX.ED.SAOD ---
HPI History of Present Illness Chief Complaint: ETOH Intox Narrative Narrative: Patient presenting today requesting to be readmitted for alcohol detox. He was initially admitted on Wednesday and left AMA on Wednesday. He reports that he was drinking about a half 1/5 of bourbon daily for about 2 years. No history of withdrawal seizures. He has not drank since Wednesday. He reports that he left because he got anxious but now regrets his decision and would like to be readmitted. He denies any other substance use. He denies withdrawal symptoms at this time. PFSH PFS Medical History Alcohol abuse Smoker Home Medications ?Medication ?Instructions ?Recorded ?Last Taken ?Type NK 08/28/24 Unknown History Allergy/AdvReac Type Severity Reaction Status Date / Time No Known Allergies Allergy Verified 08/31/24 11:41 Family History Other Kidney stone Social History Smoking Status: Current every day smoker tobacco type: e-cigarettes ROS ROS ED Constitutional Constitutional ED: Denies chills or fever(s) Cardiovascular Cardiovascular: Denies chest pain Respiratory/Chest Respiratory/Chest: Denies dyspnea Gastrointestinal Gastrointestinal: Denies abdominal pain, nausea or vomiting Musculoskeletal Musculoskeletal: Denies arthralgias or myalgias Integumentary Denies rash Neurologic Neurologic: Denies weakness EXAM Physical Exam Const Vital Signs: 08/31/24 11:38 08/31/24 12:32 08/31/24 13:08 Temperature 97 F L 97.2 F L Temperature Source Temporal Oral Pulse Rate 82 82 86 Respiratory Rate 16 16 15 Blood Pressure 153/97 H 149/89 H 132/84 H Blood Pressure Mean 115 109 100 Blood Pressure Source Monitor Blood Pressure Position Sitting Blood Pressure Location Right Arm Pulse Ox 96 98 98 Oxygen Delivery Method Room Air Room Air 08/31/24 14:00 Temperature 98.2 F Temperature Source Pulse Rate 82 Respiratory Rate 16 Blood Pressure 135/72 H Blood Pressure Mean 93 Blood Pressure Source Blood Pressure Position Blood Pressure Location Pulse Ox 99 Oxygen Delivery Method Positive well nourished, well developed and no apparent distress General Appearance ED: well developed HEENT Reports normocephalic and head/scalp atraumatic Mouth ED: Yes moist mucous membranes normal Eyes PERRL and EOMs intact bilaterally Neck full ROM and supple Chest Wall inspection of chest normal Resp normal respiratory effort and clear to auscultation bilaterally Cardio regular rate and regular rhythm Back/Spine normal ROM and normal to inspection Extremity normal to inspection and full ROM Neuro oriented x3, CN's II-XII intact bilaterally, moves all extremities, no focal motor deficits and no sensory deficits noted Sensorium / Orientation: awake and alert Psych mental status grossly normal and thought process normal Skin no rashes or lesions noted and no wounds MDM MDM MDM Narrative Medical decision making narrative: Patient requesting to be readmitted for alcohol detox. Initially admitted on Wednesday and left AMA yesterday due to feeling anxious. He now regrets this decision and would like to be readmitted. He has not had any alcohol since Wednesday. He is not currently in acute withdrawal. CBC shows a platelet count of 148, sodium is 132, total bilirubin 1.3, AST 211, ALT 284, urine tox screen is positive for barbiturates and cannabinoids. He was treated while inpatient with phenobarbital which would explain the barbiturates. Social work did come and talk with the patient and offered numerous outpatient resources for IOP, counseling, and other addiction resources. Patient would prefer to be treated as an outpatient then be readmitted. I did speak with the hospitalist, Dr. Crandall, she is comfortable with this as patient given he is not currently withdrawing. Alcohol abstinence was encouraged and patient discharged home in stable condition. Lab Data Attestation: I reviewed the patient's lab results. Labs: Laboratory Results - last 24 hr 08/31/24 08/31/24 12:30 13:28 WBC 5.4 RBC 4.66 Hgb 15.4 Hct 43.6 MCV 93.6 MCH 33.0 H MCHC 35.3 RDW Std Deviation 44.0 H RDW Coeff of Shania 12.8 Plt Count 148 L MPV 9.4 Immature Gran % (Auto) 0.200 Neut % (Auto) 66.4 Lymph % (Auto) 8.2 L Hickman % (Auto) 21.9 H Eos % (Auto) 2.0 Baso % (Auto) 1.3 H Absolute Neuts (auto) 3.6 Absolute Lymphs (auto) 0.44 L Nucleated RBC % 0 Sodium 132 L Potassium 3.5 Chloride 96 L Carbon Dioxide 26.0 Anion Gap 10 BUN 10 Creatinine 0.70 Estim Creat Clear Calc 147.74 Est GFR (MDRD) Af Amer 161 Est GFR (MDRD) Non-Af 133 BUN/Creatinine Ratio 14.2 Glucose 110 H Calcium 10.4 H Total Bilirubin 1.30 H AST 211 H ALT 284 H Alkaline Phosphatase 99 Total Protein 8.1 Albumin 4.1 Globulin 4.0 Albumin/Globulin Ratio 1.0 Urine Opiates Screen NEGATIVE Urine Methadone Screen NEGATIVE Ur Barbiturates Screen POSITIVE H Ur Phencyclidine Scrn NEGATIVE Ur Amphetamines Screen NEGATIVE MDMA (Ecstasy) Screen NEGATIVE U Benzodiazepines Scrn NEGATIVE Urine Cocaine Screen NEGATIVE U Cannabinoids Screen POSITIVE H Ur Drug Screen Comment Ethyl Alcohol < 3.0 Discharge Plan Triage Chief Complaint: ETOH Intox ED Midlevel Provider: Scarlet Cherry ED Provider: Freddy Barroso Dx/Rx/DC Orders Clinical Impression: Alcohol abuse, Elevated transaminase level Instructions: ED Alcohol Abuse Prescriptions: No Action NK Primary Care Provider: Care Physician,No Primary Referrals: Care Physician,No Primary [Primary Care Provider] - Activity Restrictions/Additional Instructions: Please follow-up with the resources you have been provided with, return for any other concerns. Print Language: Citizen Of [place] Disposition Disposition: Home, Self Care Discharge Date/Time: 08/31/24 14:04
[2024-08-31 12:32] VITALS: BP 149/89; PULSE 82; RESP 16; TEMP 36.2; O2SAT 98
[2024-08-31 12:39] LABS: Absolute Lymphocyte Count 0.44 X10^3/uL (0.83-4.51); Absolute Neutrophil Count 3.6 X10^3/uL (2.0-7.7); Basophil# 0.07 X10^3/uL; Basophil% 1.3 % (0-1); Eosinophil# 0.11 X10^3/uL; Hematocrit 43.6 % (40-54); Hemoglobin 15.4 g/dL (13.0-16.5); Lymphocyte # 0.44 X10^3/ul (0.83-4.51); Lymphocyte % 8.2 % (19-41); Mean Corp Hgb Conc 35.3 g/dL (32-36); Mean Corpuscular Volume 93.6 fL (80-94); Mean Platelet Vol. 9.4 fl (6.2-12.0); Monocyte# 1.18 X10^3/uL; Monocyte% 21.9 % (0-10); NRBC Flagged by Analyzer 0 % (0-5); Neutrophil # 3.57 X10^3/uL (2.7-7.7); Neutrophil % 66.4 % (47-70); POSITIVE DIFFERENTIAL YES; Platelet Count 148 K/mm3 (150-450); RBC Distribution Width CV 12.8 % (11.6-14.6); Red Blood Count 4.66 M/mm3 (4.6-6.2); White Blood Count 5.4 K/mm3 (4.4-11.0)
[2024-08-31 12:54] LABS: AST(SGOT) 211 U/L (15-37); Alanine Aminotransfer ALT/SGPT 284 U/L (16-61); Albumin, Serum 4.1 g/dL (3.2-5.0); Alcohol, Blood (Medical)-Serum < 3.0 mg/dL; Alkaline Phosphatase 99 U/L (45-117); Anion Gap 10 (5-15); BUN 10 mg/dL (7-18); BUN/Creat Ratio 14.2 RATIO (10-20); Calcium,Total 10.4 mg/dL (8.5-10.1); Chloride 96 mmol/L (98-107); EST Glomerular Filtration Rate 133 mL/min (>60); Est Glom Filt Rate - Afr Amer 161 mL/min (>60); Estimated Creatinine Clearance 147.74 ml/min; Glucose 110 mg/dL (74-106); Potassium 3.5 mmol/L (3.5-5.1); Protein, Total 8.1 g/dL (6.4-8.2); Sodium Level 132 mmol/L (136-145)
[2024-08-31 13:08] VITALS: BP 132/84; PULSE 86; RESP 15; O2SAT 98
[2024-08-31 13:45] LABS: Amphetamine Urine VISTA NEGATIVE (<1000 ng/mL); Barbiturate Urine VISTA POSITIVE (< 200 ng/mL); Benzodiazepine Urine VISTA NEGATIVE (< 200 ng/mL); Cocaine Urine VISTA NEGATIVE (< 300 ng/mL); Ecstacy Urine VISTA NEGATIVE (< 500 ng/mL); Methadone Urine VISTA NEGATIVE (< 300 ng/mL); PCP Urine VISTA NEGATIVE (< 25 ng/mL); THC Urine VISTA POSITIVE (< 50 ng/mL); Vista UDS pH Range 5
--- NOTE | 2024-08-31 13:45 | CM.ED ---
Social Work Reason for referral: Substance use/resources Referral Source: Scarlet HENDRICKSON and Fani RN Received update from Scarlet and Fani that patient was recently at [facility] for the RAMP program, but left yesterday AMA, presenting back to [facility] again today. Patient has not drank since release from [facility] and no reported acute medical issues to support readmission for detox. Request to provide patient resources. Met with patient, and also present was patient's father Yahir. Patient gave permission to speak in front of his father, reporting that patient's father knows everything. This keno writer / runner explored as to what patient's current concerns are and hopes for current ED admission. Patient shared that was in the [facility] RAMP program for 2 days, but left yesterday before the the detox was over as was feeling trapped and anxious, needed to tacking stitch remover around. Patient reports went to see his counselor, Annabelle at [facility] today who then recommended patient come back to [facility] to finish the detox program. Patient reports to have an appointment with [facility] for next Wednesday, 09.05.2024. Patient reports has been sober for 4 days now from alcohol. Patient expressed would like to finish any other missing pieces that he missed from the detox program. Discussed with patient and father that from what this keno writer / runner has been told about current medical status, there is not a reason to readmit. Explored what recommendations were for patient while in the RAMP program. Patient reported that was told to have options. Father expressed wanting to know what the different options are. -Educated to detox, residential (and sometimes sober living after), PHP/IOP, counseling, medication assisted therapies, and 12 step programs. -Patient voiced that likes the idea of counseling rather than something like residential right now. -Father had more questions about IOP so this keno writer / runner talked in more detail about this level of care, and educated to area agencies providing [facility] ([facility] -This keno writer / runner encouraged patient to engage in treatment recommended by clinicians, surrounding self with sober supports, and to keep engaged to be accountable to own recovery. Strongly encouraged daily 12 step meeting attendance, not making a judgement after one meeting. -Provided meeting lists, as well as information on peer support services, and 24 hour addiction help line for [facility]. -Patient's father express not knowing how to help patient, indicating that all of the alcohol has been removed from the home, but not much else has changed. -Broached that addiction is a family disease and it can be helpful for family members to also attend their own 12 step meetings, as sometimes it is also about family being able to be supportive while holding accountable and holding boundaries. -Patient's father tearful intermittently throughout SW visit, and the patient remained quiet though voiced that wants to follow up with counseling, and is willing to try 12 step programs. Reports is willing to consider IOP. -Encouraged patient to use the 24 hour help line should patient need/want additional support prior to appointment at [facility]. -Reinforced to patient's recovery is his own and must be something patient is ready to engage in. Patient voiced that is ready. -Let patient know the hospital remains a support should patient need this in the future. Patient and father expressed thanks for time and for explaining what resources and levels of care are available. Updated Scarlet and Dr. Barroso. Plan: Discharge home with family support, follow up as scheduled at [facility], and resources on 24 addiction helpline and 12 step meetings. No other services requested or indicated. -SRINIVASAN Atkinson
[2024-08-31 14:00] VITALS: BP 135/72; PULSE 82; RESP 16; TEMP 36.8; O2SAT 99
== END 2024-08-31 14:04 | disposition home or self-care (01) ==
PROVIDERS: Physician Assistant; Emergency Provider Emergency Medicine; Visit Provider Emergency Medicine
DX: F10.10 Alcohol abuse, uncomplicated (principal); R74.01 Elevation of levels of liver transaminase levels; F17.290 Nicotine dependence, other tobacco product, uncomplicated
CPT/HCPCS: 80053; 80307; 82077; 85025; 99283